=== PATIENT | female | born 1985 | race Caucasian/White ===

== ENCOUNTER 2016-07-28 06:20 | Inpatient (IN) | payer OTHER ==
[2016-07-28] MEDS ORDERED: ELECTROLYTE-148 SOLN 500 ML IV ONE (07:39)
[2016-07-28] MEDS ORDERED: CITRIC ACID/SODIUM CITRATE 30 ML UNIT-DOSE CUP PO ONE (07:39)
[2016-07-28] MEDS ORDERED: ELECTROLYTE-148 SOLN 1,000 ML IV SCH (07:45)
--- NOTE | 2016-07-28 07:51 | HP ---
Past Medical History - Primary Care Physician PCP:: Mary Francis - Admission Chief Complaint: 30 yrs , previous c/section type unknown, onset LP since 2.30 am, requests for repeat c/section History of Present Illness: PNC at , 2, [facility] Wt gain 33 lbs work Up : O pos, Rpr nr, Hbsag neg, Rubella pos, Quantiferon neg, Gbs neg, Hiv neg, 1 hr GTT 143, 3 Hr GTT wnl ( 84, 170, 140, 137) Serial Sono for growth were done by MFM . 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 Weeks Gestation by Dates: 39.2 ...EDC by Dates: 08/02/16 ...EDC by Sono: 08/02/16 (by 12.2 weeks on 01/21/16) Heme/Onc: No: Anemia Infectious Disease: No: HIV, STD's Psych: No: Addictions, Anxiety, Bipolar, Depression Endocrine: No: Diabetes Mellitus, Hyperthyroidism, Hypothyroidism - Past Surgical History Past Surgical History: Yes: (05/12/2008) Hx Myomectomy: No Hx Transabdominal Cerclage: No - Smoking History Have you smoked in the past 12 months: No - Alcohol/Substance Use Hx Alcohol Use: No History of Substance Use: reports: None - Social History History of Recent Travel: No Home Medications - Allergies Allergies/Adverse Reactions: Allergies Allergy/AdvReac Type Severity Reaction Status Date / Time No Known Allergies Allergy Verified 07/28/16 07:38 - Home Medications Home Medications: Ambulatory Orders Vit/Iron Fumarate/FA [ Tablet] 1 each PO DAILY 07/28/16 Physical Exam - Maternity Vital Signs: Selected Entries 07/28/16 07:30 Temperature 98.6 F Pulse Rate 108 H Blood Pressure 106/73 Weight 155 lb Constitutional: Yes: Well Nourished, Mild Distress Eyes: Yes: WNL, Occular Prosthesis Neck: Yes: WNL Cardiovascular: Yes: WNL Lungs: Clear to auscultation Breast(s): Yes: WNL - Abdominal Exam/OB Fundal Height: 40 Number of Fetuses: Single Presentation: Vertex Contractions: Yes Regularity: Regular (q 2 min) Intensity: Mild/Mod Monitor Mode: External Heart Rate (range): 130 Heart Rate Location: [facility] Category: I Accelerations: Uniform Decelerations: None - Vaginal Exam/OB Vaginal Bleediing: Bloody Show Dilatation (cm): 1 Effacement (%): 80 Amniotic Membrane Status: Intact Presentation: Vertex/Position Station: -3 - Physical Exam Musculoskeletal: Yes: WNL Extremities: Yes: WNL. No: Calf Tenderness Edema: No Integumentary: Yes: WNL Deep Tendon Reflex Grade: Normal +2 ...Motor Strength: WNL Psychiatric: Yes: WNL, Alert, Oriented - Labs Lab Results: Laboratory Tests 07/28/16 07/28/16 07/28/16 07:50 07:50 07:50 WBC 9.4 Hgb 11.2 Hct 33.9 Plt Count 238 INR 0.96 PTT (Actin FS) 28.9 Sodium 140 Potassium 3.9 Chloride 105 Carbon Dioxide 22 BUN 5 L Creatinine 0.4 L Calcium 8.1 L Problem List - Problems (1) with 39 completed weeks gestation Code(s): Z3A.39 - 39 WEEKS GESTATION OF (2) Previous delivery affecting , antepartum Code(s): O34.219 - MATERNAL CARE FOR UNSP TYPE SCAR FROM PREVIOUS DEL (3) Labor established Code(s): NIV0033 - Assessment/Plan 29 yrs , Previous C/section type unknon, in early labor, pt declines & requests for Repeat C/section
[2016-07-28 08:02] VITALS: BMI 29.2
[2016-07-28 08:07] LABS: BASOPHIL 0.2 % (0-2.0); EOSINOPHIL 0.1 % (0-4.5); MCH 27.3 pg (25.7-33.7); MCHC 32.9 g/dl (32.0-36.0); MEAN PLT VOLUME 8.5 fl (7.5-11.1); NEUTROPHILS 82.5 % (42.8-82.8); PLATELET COUNT 238 K/MM3 (134-434); RDW 15.4 % (11.6-15.6); WHITE BLOOD COUNT 9.4 K/mm3 (4.0-10.0)
[2016-07-28 08:25] LABS: INR 0.96 (0.82-1.09); PROTHROMBIN TIME (PATIENT) 10.5 SEC (9.98-11.88)
[2016-07-28 08:28] LABS: ACTIVATED PTT 28.9 SECONDS (26.9-34.4); CALCIUM 8.1 mg/dL (8.5-10.1); CREATININE 0.4 mg/dL (0.55-1.02)
[2016-07-28] MEDS ORDERED: IBUPROFEN 800 MG/8 ML IJ IVPB PRN ×2 (10:21→10:32)
[2016-07-28] MEDS ORDERED: METHYLERGONOVINE MALEATE 0.2 MG/1 ML AMP IM PRN (10:21)
--- NOTE | 2016-07-28 10:32 | PN ---
Delivery - Delivery Section: Repeat, Low Flap Transverse (39.2 weeks, previous c/section in labor, delined ) Type of Anesthesia: Spinal Episiotomy/Laceration: None EBL (cc): 500 (gilbert out put 100 ml judson color ) Delivery, Single - Stages of Labor Date 1st Stage Initiatied: 07/28/16 Time 1st Stage Initiated: 00:30 Date of Delivery: 07/28/16 Time of Delivery: 09:37 Date Placenta Delivered: 07/28/16 Time Placenta Delivered: 09:38 Placenta: Yes: Manual Removal, Uterine Exploration - Condition of Infant Public Address System Mechanic/Civil Celebrant Present: Yes Name: Groening,Kerry Infant Gender: Male Weight: 8 lb 14 oz Position: OP Total Hours ROM (Hrs/Mins): 0/2 - 1 Minute Total Score: 9 5 Minutes Total Score: 9 - Feeding Plan Initial Plan: Elected not to breastfeed exclusively throughout hospitalization Remarks - Remarks Remarks: 30 yrs , 39.2 weeks , previous c/s type unknown in labor , declined gbs neg. PNC at , [facility] Intra op course uneventful.
[2016-07-28] MEDS ORDERED: ONDANSETRON 4 MG/2 ML VIAL IVPUSH PRN (10:35)
--- NOTE | 2016-07-28 10:37 | OP ---
Operative Note - Note: Operative Date: 07/28/16 Pre-Operative Diagnosis: 39.2 weeks, previous c/s type unknown , in labor, declines Operation: repeat LFTC/section Findings: 9.37 am, Baby Boy, Vx, Op position, 9/9, wt 8'14" Both Tubes & ovaries normal Surgeon: Mary Francis Cloth Bolt Bander: Serg Tinsley Anesthesiologist/STUDIO TECHNICIAN VIDEO OPERATOR: Rizwan Avery Anesthesia: Spinal Specimens Removed: placenta. cord blood Estimated Blood Loss (mls): 500 Drains, Volume Out (mls): 100 (gilbert out put, judson olor ) Fluid Volume Replaced (mls): 1,500 (Iv Ancef 1 gm prior to incision was given ) Operative Report Dictated: Yes
[2016-07-28] MEDS: D5W-LR W/ 20 UNITS OXYTOCIN 1,000 ML IV SCH (11:17)
--- NOTE | 2016-07-28 11:58 | OP ---
DATE OF OPERATION: 07/28/2016 PREOPERATIVE DIAGNOSES: 39.2 weeks, previous section, type unknown, in labor, declines vaginal after . OPERATION DONE: Repeat low flap transverse section. SURGEON: Mary Francis MD COMMODITY ANALYST: DAVID Delaney ANESTHESIOLOGIST: Rizwan Avery MD ANESTHESIA: Spinal. FINDINGS: This is a 30-year-old 3, para 1-0-1-1 and is 39.2 weeks, previous . She was in labor, 1 cm dilated, rao every 2 minutes. Cervix was 80% effaced, -3, and appeared to be a large baby. PROCEDURE: Patient was taken to the operating room table and abdomen was shaved, prepped. Gonzales catheter was placed. Spinal anesthesia was given. Abdomen was painted and draped in usual manner. Pfannenstiel incision was made just above the previous scar. The skin, subcutaneous tissue, anterior rectus sheath were incised transversely. Bleeding points were clamped and cauterized. Rectus muscle was from the rectus sheath. Parietal peritoneum was opened vertically. Low flap bladder peritoneum was incised transversely. Lower uterine segment was incised transversely. Amniotic fluid was clear. Baby was delivered from OP position at 9:37 a.m. Apgars were 9, 9, and baby's weight was 8 pounds 14 ounce. Cord was clamped, cut. Cord blood was collected and placenta was removed completely with the membranes. Then, uterus was brought out of the incision. Uterine cavity was cleaned and uterine incision was closed in 2 layers. First layer was closed with Biosyn 0 suture. Continuous locking sutures were taken. Second layer was closed with Biosyn 0 suture. Continuous vertical mattress sutures were taken imbricating the 1st layer and bladder peritoneum also was closed with Biosyn 0 suture. Hemostasis was verified. Both tubes and ovaries were normal. Irrigation was done. Uterus was placed back into the peritoneal cavity. Then, sponge, instrument, and needle count was correct and the closure of the abdomen was done. Parietal peritoneum was closed with a Vicryl 0 suture. Muscles were approximated together with interrupted sutures with 0 Vicryl suture and the hemostasis was checked underneath the rectus sheath flap and then anterior rectus sheath was closed with a Vicryl 0 suture. Continuous sutures were taken in the rectus sheath and hemostasis was checked in subcutaneous tissue. Some interrupted sutures were taken in the subcutaneous tissue. The skin was mobilized from underneath scar and then the skin was approximated with desmond. Pressure dressing was given. Blood clots were removed from the vagina. Estimated blood loss was 500 mL. Intraoperative urine output was 100 mL and she received IV Ancef 1 g prior to the incision. Patient tolerated procedure well and she was transferred to the recovery room in stable condition. Lissette [id number]
[2016-07-28] MEDS: CEFAZOLIN (PRE-DOCKED) 50 ML IVPB SCH (17:21)
[2016-07-29] MEDS: CEFAZOLIN (PRE-DOCKED) 50 ML IVPB SCH ×2 (02:30→09:24)
[2016-07-29 07:32] LABS: BASOPHIL 0.1 % (0-2.0); EOSINOPHIL 0.3 % (0-4.5); MCHC 32.5 g/dl (32.0-36.0); MEAN CELL VOLUME 83.3 fl (80-96); MEAN PLT VOLUME 8.4 fl (7.5-11.1); NEUTROPHILS 79.5 % (42.8-82.8); PLATELET COUNT 209 K/MM3 (134-434); RDW 15.6 % (11.6-15.6); WHITE BLOOD COUNT 8.7 K/mm3 (4.0-10.0)
[2016-07-29] MEDS ORDERED: oxyCODONE HCL 5 MG TABLET PO PRN (08:00)
--- NOTE | 2016-07-29 08:53 | PN ---
Post Progress Note - Subjective Subjective: doing well, in bed, minimal pain Post Day: 1 Type of Delivery: Repeat C/S Vital Signs: Vital Signs Temperature 98.7 F 07/29/16 05:56 Pulse Rate 78 07/29/16 05:56 Respiratory Rate 20 07/29/16 05:56 Blood Pressure 100/60 07/29/16 05:56 O2 Sat by Pulse Oximetry (%) 100 07/28/16 12:00 Uterus: Yes: Fundus Firm Incision: Yes: Dressing dry and intact Abdomen/GI: Yes: Abdomen soft Lochia: Yes: Rubra Lochia, amount: Small Extremities: Yes: Calves non-tender Perineum: Yes: Intact Activity: Ambulating - Labs Labs: CBC WBC 8.7 K/mm3 (4.0-10.0) 07/29/16 06:00 RBC 3.83 M/mm3 (3.60-5.2) 07/29/16 06:00 Hgb 10.4 GM/dL (10.7-15.3) L 07/29/16 06:00 Hct 31.9 % (32.4-45.2) L 07/29/16 06:00 MCV 83.3 fl (80-96) 07/29/16 06:00 MCHC 32.5 g/dl (32.0-36.0) 07/29/16 06:00 RDW 15.6 % (11.6-15.6) 07/29/16 06:00 Plt Count 209 K/MM3 (134-434) 07/29/16 06:00 MPV 8.4 fl (7.5-11.1) 07/29/16 06:00 Neutrophils % 79.5 % (42.8-82.8) 07/29/16 06:00 Lymphocytes % 12.9 % (8-40) 07/29/16 06:00 Monocytes % 7.2 % (3.8-10.2) 07/29/16 06:00 Eosinophils % 0.3 % (0-4.5) D 07/29/16 06:00 Basophils % 0.1 % (0-2.0) 07/29/16 06:00 Assessment/Plan as above oob check labs pain control
[2016-07-29] MEDS: ENOXAPARIN NA (PORCINE) 40 MG/0.4 ML DISP.SYRIN SQ SCH (09:23)
[2016-07-29] MEDS ORDERED: INFLUENZA VACCINE 60 MCG/0.5 ML (P/F DISP.SYRIN 16-17) IM ONE (10:00)
[2016-07-29] MEDS ORDERED: INFLUENZA VACCINE 45 MCG/0.5 ML (MDV 16-17) IM ONE (10:00)
[2016-07-29] MEDS ORDERED: DIPHTH,PERTUSS(ACELL),TET 0.5 ML DISP.SYRIN IM ONE (10:00)
[2016-07-29] MEDS: PRENATAL VITAMINS W/ FOLIC ACID TABLET (FP) PO SCH (10:05)
[2016-07-29] MEDS ORDERED: BISACODYL 10 MG SUPP.RECT RC PRN (10:21)
--- NOTE | 2016-07-29 12:51 | PN ---
Progress Note (short form) - Note Progress Note: Anesthesia postop note 30 y/o F s/p spinal anesthesia for section, duramorph for postop pain POD#1, vss, aaox3, pain well controlled, ambulating, no complaints. No anesthesia complications.
[2016-07-29] MEDS: IBUPROFEN 600 MG TABLET (FP) PO PRN (14:11)
[2016-07-29] MEDS: ACETAMINOPHEN 325 MG TABLET (FP) PO PRN ×2 (14:12→21:21)
[2016-07-29] MEDS: SIMETHICONE 80 MG TAB.CHEW (FP) PO PRN ×2 (14:13→21:23)
[2016-07-29] MEDS: FERROUS SO4 325 MG TABLET (FP) PO SCH (21:22)
[2016-07-29] MEDS: oxyCODONE HCL 5 MG TABLET PO PRN (21:22)
[2016-07-29] MEDS: SENNOSIDES/DOCUSATE COMBO (SENNA PLUS) TABLET (UD) PO PRN (21:22)
[2016-07-30] MEDS: ACETAMINOPHEN 325 MG TABLET (FP) PO PRN ×3 (04:57→21:11)
[2016-07-30] MEDS: SIMETHICONE 80 MG TAB.CHEW (FP) PO PRN ×3 (04:57→21:10)
[2016-07-30] MEDS: oxyCODONE HCL 5 MG TABLET PO PRN ×2 (04:58→21:10)
[2016-07-30] MEDS: ENOXAPARIN NA (PORCINE) 40 MG/0.4 ML DISP.SYRIN SQ SCH (09:12)
[2016-07-30] MEDS: PRENATAL VITAMINS W/ FOLIC ACID TABLET (FP) PO SCH (09:12)
[2016-07-30] MEDS: FERROUS SO4 325 MG TABLET (FP) PO SCH ×2 (09:12→21:10)
--- NOTE | 2016-07-30 11:48 | PN ---
Post Progress Note - Subjective Subjective: no complains . painscale 08/23 Post Day: 2 Type of Delivery: Repeat C/S Vital Signs: Vital Signs Temperature 97.8 F 07/30/16 08:25 Pulse Rate 85 07/30/16 08:25 Respiratory Rate 20 07/30/16 08:25 Blood Pressure 110/59 07/30/16 08:25 O2 Sat by Pulse Oximetry (%) 100 07/28/16 12:00 Breast Exam: Yes: Soft, Other (BF attempting ) Uterus: Yes: Fundus Firm, Fundus below umbilicus, Non-tender Incision: Yes: [place] intact. No: Redness, Oozing Abdomen/GI: Yes: Abdomen soft, Passing flatus (bmdone ), Tolerating PO (die5t ) . No: Abdominal Distention, Tender Lochia: Yes: Rubra Lochia, amount: Moderate Extremities: Yes: Calves non-tender Perineum: Yes: Intact Activity: Ambulating - Labs Labs: CBC WBC 8.7 K/mm3 (4.0-10.0) 07/29/16 06:00 RBC 3.83 M/mm3 (3.60-5.2) 07/29/16 06:00 Hgb 10.4 GM/dL (10.7-15.3) L 07/29/16 06:00 Hct 31.9 % (32.4-45.2) L 07/29/16 06:00 MCV 83.3 fl (80-96) 07/29/16 06:00 MCHC 32.5 g/dl (32.0-36.0) 07/29/16 06:00 RDW 15.6 % (11.6-15.6) 07/29/16 06:00 Plt Count 209 K/MM3 (134-434) 07/29/16 06:00 MPV 8.4 fl (7.5-11.1) 07/29/16 06:00 Neutrophils % 79.5 % (42.8-82.8) 07/29/16 06:00 Lymphocytes % 12.9 % (8-40) 07/29/16 06:00 Monocytes % 7.2 % (3.8-10.2) 07/29/16 06:00 Eosinophils % 0.3 % (0-4.5) D 07/29/16 06:00 Basophils % 0.1 % (0-2.0) 07/29/16 06:00 Problem List - Problems (1) with 39 completed weeks gestation Code(s): Z3A.39 - 39 WEEKS GESTATION OF (2) Previous delivery affecting , antepartum Code(s): O34.219 - MATERNAL CARE FOR UNSP TYPE SCAR FROM PREVIOUS DEL (3) Labor established Code(s): BFS3654 - Assessment/Plan stable plan ct po care
--- NOTE | 2016-07-30 15:13 | PATH ---
Surgical Pathology Report Patient Name: UNIQUE TAVARES [facility]. Rec. #: [id number] /Age/Gender: 1985 (Age: 30) / F Account: [id number] Location: [facility] OBS/BINGO CALLER Taken: 07/28/2016 Received: 07/29/2016 Reported: 07/30/2016 Physicians: Mary Francis M.D. Specimen(s) Received PLACENTA Clinical History 3 para 1, 39.2 weeks AB x1 section x1 Final Diagnosis PLACENTA, DELIVERY: FOCALLY DISRUPTED THIRD TRIMESTER PLACENTA WITH THREE VESSEL UMBILICAL CORD AND UNREMARKABLE PLACENTAL MEMBRANES. Electronically Signed Benton Rivera M.D. Gross Description The specimen is received fresh labeled placenta and is a 464 gram, 18 x 17 x up to 2.8 cm. placenta with attached membranes and umbilical cord. The attached membranes are glistening and translucent and insert marginally. The umbilical cord measures 63 cm. in length and averages 1.5 cm. in diameter. The cord inserts eccentrically, 6 cm. to the nearest margin. No true knots or strictures are identified. Cut surface of the umbilical cord reveals 3 vessels. The surface is hernandez-blue with minimal fibrin deposition and appropriate caliber vessels. The maternal surface is red-brown with focal defects. Sectioning reveals red-brown, spongy parenchyma. No lesions are identified. Director Of Video Analytics sections are submitted in three cassettes as follows: 1- membrane rolls and umbilical cord; 2-3- full thickness sections of placenta. [facility]/07/29/2016 [facility]/07/29/2016
[2016-07-30] MEDS: IBUPROFEN 600 MG TABLET (FP) PO PRN (16:42)
[2016-07-30] MEDS: D5W-LR W/ 20 UNITS OXYTOCIN 1,000 ML IV SCH (20:14)
[2016-07-31] MEDS: SIMETHICONE 80 MG TAB.CHEW (FP) PO PRN ×2 (05:32→20:08)
[2016-07-31] MEDS: ACETAMINOPHEN 325 MG TABLET (FP) PO PRN ×2 (05:32→20:09)
[2016-07-31] MEDS: oxyCODONE HCL 5 MG TABLET PO PRN ×2 (05:33→20:09)
[2016-07-31 07:13] LABS: BASOPHIL 0.2 % (0-2.0); EOSINOPHIL 2.2 % (0-4.5); MCH 27.5 pg (25.7-33.7); MEAN CELL VOLUME 83.4 fl (80-96); MEAN PLT VOLUME 7.7 fl (7.5-11.1); PLATELET COUNT 263 K/MM3 (134-434); RDW 15.4 % (11.6-15.6); WHITE BLOOD COUNT 6.8 K/mm3 (4.0-10.0)
[2016-07-31] MEDS: ENOXAPARIN NA (PORCINE) 40 MG/0.4 ML DISP.SYRIN SQ SCH (09:20)
[2016-07-31] MEDS: FERROUS SO4 325 MG TABLET (FP) PO SCH ×2 (09:20→21:06)
[2016-07-31] MEDS: PRENATAL VITAMINS W/ FOLIC ACID TABLET (FP) PO SCH (09:20)
--- NOTE | 2016-07-31 10:19 | PN ---
Post Progress Note - Subjective Subjective: no complains Post Day: 3 Type of Delivery: Repeat C/S Vital Signs: Vital Signs Temperature 98.3 F 07/31/16 08:56 Pulse Rate 82 07/31/16 08:56 Respiratory Rate 20 07/31/16 08:56 Blood Pressure 109/68 07/31/16 08:56 O2 Sat by Pulse Oximetry (%) 100 07/28/16 12:00 Breast Exam: Yes: Soft. No: Engorged Uterus: Yes: Fundus Firm, Fundus below umbilicus Incision: Yes: [place] intact. No: Redness, Oozing Abdomen/GI: Yes: Abdomen soft, Passing flatus (bm done ), Tolerating PO (diet ) . No: Abdominal Distention, Tender Lochia: Yes: Rubra Lochia, amount: Moderate Extremities: Yes: Calves non-tender Perineum: Yes: Intact Activity: Ambulating - Labs Labs: CBC WBC 6.8 K/mm3 (4.0-10.0) 07/31/16 05:20 RBC 3.91 M/mm3 (3.60-5.2) 07/31/16 05:20 Hgb 10.7 GM/dL (10.7-15.3) 07/31/16 05:20 Hct 32.6 % (32.4-45.2) 07/31/16 05:20 MCV 83.4 fl (80-96) 07/31/16 05:20 MCHC 33.0 g/dl (32.0-36.0) 07/31/16 05:20 RDW 15.4 % (11.6-15.6) 07/31/16 05:20 Plt Count 263 K/MM3 (134-434) D 07/31/16 05:20 MPV 7.7 fl (7.5-11.1) 07/31/16 05:20 Neutrophils % 64.0 % (42.8-82.8) 07/31/16 05:20 Lymphocytes % 25.4 % (8-40) D 07/31/16 05:20 Monocytes % 8.2 % (3.8-10.2) 07/31/16 05:20 Eosinophils % 2.2 % (0-4.5) D 07/31/16 05:20 Basophils % 0.2 % (0-2.0) 07/31/16 05:20 Problem List - Problems (1) with 39 completed weeks gestation Code(s): Z3A.39 - 39 WEEKS GESTATION OF (2) Previous delivery affecting , antepartum Code(s): O34.219 - MATERNAL CARE FOR UNSP TYPE SCAR FROM PREVIOUS DEL (3) Labor established Code(s): AIC5080 - Assessment/Plan stable. plan discharge tomorrow.
[2016-07-31] MEDS: SENNOSIDES/DOCUSATE COMBO (SENNA PLUS) TABLET (UD) PO PRN (20:08)
[2016-08-01] MEDS: SIMETHICONE 80 MG TAB.CHEW (FP) PO PRN ×2 (04:00→09:59)
[2016-08-01] MEDS: oxyCODONE HCL 5 MG TABLET PO PRN (04:00)
[2016-08-01] MEDS: ACETAMINOPHEN 325 MG TABLET (FP) PO PRN ×2 (04:06→09:58)
[2016-08-01 09:40] VITALS: BP 106/63; PULSE 75; TEMP 98.6
--- NOTE | 2016-08-01 09:41 | DS ---
Physical Exam-LANDSCAPING MANAGER Vital Signs: Vital Signs Temperature 98.5 F 07/31/16 20:18 Pulse Rate 80 07/31/16 20:18 Respiratory Rate 20 07/31/16 20:18 Blood Pressure 106/66 07/31/16 20:18 O2 Sat by Pulse Oximetry (%) 100 07/28/16 12:00 Constitutional: Yes: Well Nourished Eyes: Yes: WNL HENT: Yes: WNL, Normocephalic Neck: Yes: WNL Cardiovascular: Yes: WNL Respiratory: Yes: WNL Gastrointestinal: Yes: WNL, Normal Bowel Sounds, Soft, Other (bm done). No: Distention Renal/: Yes: Other (voiding without difficulty) ....Post : Yes: Uterus firm, Uterus non-tender, Moderate lochia rubra Breast(s): Yes: WNL (BF) Musculoskeletal: Yes: WNL Extremities: Yes: WNL. No: Calf Tenderness Edema: LLE: Trace, RLE: Trace Wound/Incision: Yes: Clean/Dry, Well Approximated, Steri Strips, [place] Removed. No: Draining, Bleeding Neurological: Yes: WNL, Alert, Oriented ...Motor Strength: WNL Psychiatric: Yes: WNL, Alert, Oriented Labs: CBC, BMP 07/31/16 05:20 07/28/16 07:50 Delivery - Delivery Section: Repeat, Low Flap Transverse (39.2 weeks, previous c/section in labor, delined ) Type of Anesthesia: Spinal Episiotomy/Laceration: None EBL (cc): 500 (gilbert out put 100 ml judson color ) Delivery, Single - Stages of Labor Date 1st Stage Initiatied: 07/28/16 Time 1st Stage Initiated: 00:30 Date of Delivery: 07/28/16 Time of Delivery: 09:37 Time Placenta Delivered: 09:38 Placenta: Yes: Manual Removal, Uterine Exploration - Condition of Infant Tube And Rod Straightener/Analysis Reporting Developer Present: Yes Name: Groening,Counselor Infant Gender: Male Weight: 8 lb 14 oz Position: OP Total Hours ROM (Hrs/Mins): 0/2 - 1 Minute Total Score: 9 5 Minutes Total Score: 9 - Feeding Plan Initial Plan: Elected not to breastfeed exclusively throughout hospitalization Remarks - Remarks Remarks: 30 yrs , 39.2 weeks , previous c/s type unknown in labor , declined gbs neg. PNC at [address] [place] [address] Intra op course uneventful. post op course uneventful. discharge today Discharge Summary Reason For Visit: REPEAT C SECTION Current Active Problems Delivery by emergency section (Acute) Labor established (Acute) with 39 completed weeks gestation (Acute) Previous delivery affecting , antepartum (Acute) Condition: Stable - Instructions Diet, Activity, Other Instructions: Post Instructions DIET: Continue good diet high in protein, calcium, and iron rich foods. Drink at least eight (8) glasses of water daily in addition to other fluids. ct Regular diet MEDICATIONS: Continue vitamins and iron as previously directed. Motrin and Tylenol may be taken for minor discomfort. ACTIVITY: Mild to moderate exercise may be started in two (2) weeks. Take frequent rest periods. Resume normal activity after six (6) week check up. WOUND CARE OF OPERATIVE SITE: Continue use of perineal bottle until vaginal discharge stops. Keep area clean. Shower daily. Keep abdominal wound dry. Report any drainage or redness to physician. Tub baths, tampons and douches are not permitted for [address] Breast feeding & or Bottle feeding BREAST CARE: (For those that are not breast feeding): If engorgement occurs: Wear tight fitting bra. Take Tylenol or Motrin for pain. Apply cold packs (ice in bags to each breast ) FAMILY PLANNING: There are many control alternatives to pursue and they should be discussed at your first office visit. You may resume sexual activity after your six (6) week check up. (Remember, breast feeding is not a contraceptive) NEXT PHYSICIAN APPOINTMENT: Be certain to call for a one (1) week appointment, unless otherwise directed. rtc [address] [place] [address] for wound check Call Clinic or got to Emergency Dept if you have any of the following: Heavy vaginal bleeding Painful urination Leg pain Unusual odor noted to vaginal bleeding High fever Red streaking noted on breast Referrals: Mary Francis MD [Staff Physician] - Disposition: HOME - Home Medications Comprehensive Discharge Medication List: Ambulatory Orders Vit/Iron Fumarate/FA [ Tablet] 1 each PO DAILY 07/28/16 Acetaminophen [Tylenol .Regular Strength -] 650 mg PO Q4H PRN #0 tablet Ferrous Sulfate [Feosol] 325 mg PO BID #60 07/31/16 Ibuprofen [Motrin -] 600 mg PO Q4H PRN #30 tablet 07/31/16 Vitamins (Sjr) - 1 tab PO DAILY tablet 07/31/16
[2016-08-01] MEDS: FERROUS SO4 325 MG TABLET (FP) PO SCH (09:59)
[2016-08-01] MEDS: PRENATAL VITAMINS W/ FOLIC ACID TABLET (FP) PO SCH (09:59)
[2016-08-01] MEDS: ENOXAPARIN NA (PORCINE) 40 MG/0.4 ML DISP.SYRIN SQ SCH (09:59)
== END 2016-08-01 11:45 | disposition home or self-care (01) | DRG 540 ==
LOC: JDEL 06:20 → JLDR 07:15 → J3W 12:26
PROVIDERS: ADMIT Obstetrics & Gynecology; ATTEND Obstetrics & Gynecology
PROC: 10D00Z1 Extraction of Products of Conception, Low, Open Approach (ICD-10-PCS; principal; 2016-07-28)
DX: O34.211 Maternal care for low transverse scar from previous cesarean delivery (principal); Z3A.39 39 weeks gestation of pregnancy; Z37.0 Single live birth
CPT/HCPCS: 36415; 80048; 85025; 85610; 85730; 86593; 86850; 86900; 86901; 88307-TC; 90686; 90715; G0008